=== PATIENT | female | born 1975 | race Caucasian/White ===

== ENCOUNTER 2020-08-14 19:13 | Emergency (ER) | payer SELFPAY ==
[2016-02-13 17:35] VITALS: BP 132/70
[~2020-08-14 19:13] MED LIST: ACET-704 PO; ALPR0.5T PO; ARIP5TAB13 PO; CYCL-331 PO; DULO60CA6 PO; GABA-586 PO; HYDR-2155 PO; IBUP200T44 PO; METH4TAB2 PO; PARO30TA45 PO; PRED20TA PO; PREG75CA PO; SERT100T PO; SULF500T7 PO
== END 2020-08-14 19:23 | disposition left against medical advice (07) ==
LOC: ER 19:13
DX: R06.02 Shortness of breath (principal); R05 Cough; Z53.21 Procedure and treatment not carried out due to patient leaving prior to being seen by health care provider

== ENCOUNTER 2021-05-18 03:49 | Emergency (ER) | payer MEDICAID ==
[~2021-05-18] VITALS: Ht 175.3 cm; Wt 119.0 kg
[2021-05-18 03:49] VITALS: BP 162/87
[2021-05-18] MEDS ORDERED: IPRATRPIUM/ALBUTEROL 0.5/2.5MG 3 ML NEBU. NEB ONE (04:00)
[2021-05-18] MEDS ORDERED: DEXAMETHASONE SOD PHOS 10 MG/ML VIAL. PO ONE (04:00)
--- NOTE | 2021-05-18 04:24 | RAD ---
XR CHEST 2V INDICATION: Reason: cough, short of air / Spl. Instructions: / History: . COMPARISON STUDY: None. FINDINGS: Lungs: Normal lung volume. No pulmonary mass or consolidation. The tracheobronchial tree and hilar st ructures are normal. Pleura: No pleural effusion or pneumothorax. Heart and Mediastinum: The cardiomediastinal silhouette is normal. The great vessels of the thorax ar e normal. Bones and Soft Tissues: The bones and soft tissues are within normal limits. IMPRESSION: No acute cardiopulmonary process. Electronically signed by: Dillan Farnsworth MD (05/18/2021 4:22 AM) [facility]
--- NOTE | 2021-05-18 04:39 | PHYS DOC ---
Past History Past Medical History: Arthritis, Fibromyalgia Past Surgical History: No Surgical History Smoking: Non-smoker Alcohol Use: None Drug Use: None Adult General Chief Complaint Chief Complaint: CONGESTION HPI HPI Patient is a 45-year-old female with a past medical history significant for asthma who presents with 2 days of nasal congestion, productive cough. Denies any recent trauma, travels, fevers, chest pain, shortness of breath, abdominal pain, nausea, vomiting, dysuria, hematuria or blood in the stool. Denies any known ill contacts. Review of Systems Review of Systems Review of systems otherwise unremarkable except noted in HPI Current Medications Current Medications Current Medications Medications (Trade) Dose Ordered Sig/Bruno Start Time Stop Time Status Last Admin Dose Admin Albuterol/ Ipratropium (Duoneb) 3 ml 1X ONCE 05/18/21 04:00 05/18/21 04:05 DC 05/18/21 04:00 3 ML Dexamethasone Sodium Phosphate (Decadron) 10 mg 1X ONCE 05/18/21 04:00 05/18/21 04:05 DC 05/18/21 04:00 10 MG Allergies Allergies Allergies Coded Allergies Type Severity Reaction Last Updated Verified latex Allergy Mild Skin irritation. 07/05/14 Yes Physical Exam Physical Exam Constitutional: Well developed, well nourished, no acute distress, non-toxic appearance. [] HENT: Normocephalic, atraumatic, oropharynx moist, no oral exudates, Eyes: conjunctiva normal, no discharge. [] Neck: Normal range of motion, no tenderness, supple, no stridor. [] Cardiovascular:Heart rate regular rhythm, no murmur [] Lungs & Thorax: Bilateral breath sounds with mild global rhonchi and mild end expiratory wheeze Neurologic: Alert and oriented X 3, no focal deficits noted. [] Psychologic: Affect normal, judgement normal, mood normal. [] Current Patient Data Vital Signs Vital Signs Date Time Temp Pulse Resp B/P (MAP) Pulse Ox O2 Delivery O2 Flow Rate FiO2 05/18/21 04:08 99 Room Air 05/18/21 03:49 98.1 95 20 162/87 (112) EKG EKG [] Radiology/Procedures Radiology/Procedures [] XR CHEST 2V INDICATION: Reason: cough, short of air / Spl. Instructions: / History: . COMPARISON STUDY: None. FINDINGS: Lungs: Normal lung volume. No pulmonary mass or consolidation. The tracheobronchial tree and hilar structures are normal. Pleura: No pleural effusion or pneumothorax. Heart and Mediastinum: The cardiomediastinal silhouette is normal. The great vessels of the thorax are normal. Bones and Soft Tissues: The bones and soft tissues are within normal limits. IMPRESSION: No acute cardiopulmonary process. Electronically signed by: Dillan Farnsworth MD (05/18/2021 4:22 AM) [facility] Heart Score C/O Chest Pain: No Risk Factors: Risk Factors: DM, Current or recent (<one month) smoker, HTN, HLP, family history of CAD, obesity. Risk Scores: Risk Factors: DM, Current or recent (<one month) smoker, HTN, HLP, family history of CAD, obesity. Course & Med Decision Making Course & Med Decision Making Patient is a 45-year-old female who presents with 2 days of nasal congestion and cough Vital signs notable for hypertension. Physical exam noted above. Patient given steroids, and DuoNeb. Chest x-ray not concerning. Gave dose of cough medicine in ED. Discussed all findings with patient and advised on symptom treatment at home. Advised to keep her appointment this morning with her primary care physician. Gave return precautions to the ED. Patient grateful, verbalized understanding and agreed with plan of discharge. Dragon Disclaimer Dragon Disclaimer This electronic medical record was generated, in whole or in part, using a voice recognition dictation system. Departure Departure: Impression: Primary Impression: Asthma exacerbation Additional Impression: Viral syndrome Disposition: HOME / SELF CARE / HOMELESS Condition: GOOD Referrals: BABAR BUITRAGO MD (PCP) Patient Instructions: Asthma Attacks, Prevention, Viral Syndrome Additional Instructions: Thank you for coming into the emergency department tonight and allowing us to take care of you. Please read all of the attached information very carefully to go over things we discussed. You are given steroids, breathing treatments and codeine cough syrup here in the emergency department. Please keep your primary care physician appointment this morning to update on ED visit and discuss need for further evaluation and treatment. Your chest x-ray did not show any pneumonia here today. Please come back to emergency department with new or concerning symptoms as discussed. Problem Qualifiers KIET MALDONADO MD May 18, 2021 04:39
[2021-05-18] MEDS ORDERED: guaiFENesin/CODEINE 100mg/10mg 5 ML LIQUID PO PRN (04:45)
== END 2021-05-18 05:00 | disposition home or self-care (01) ==
LOC: ER 03:49
DX: J45.901 Unspecified asthma with (acute) exacerbation (principal); B34.9 Viral infection, unspecified; M19.90 Unspecified osteoarthritis, unspecified site; M79.7 Fibromyalgia; Z91.040 Latex allergy status
CPT/HCPCS: 71046; 94640; 99283; J1100

== ENCOUNTER → 2021-08-22 | Day surgery (SDC) | payer MEDICAID ==
[~2021-08-22] MED LIST changes: +ACETAMINOPHEN 500 MG TABLET PO ONE; +DEXAMETHASONE SOD PHOS 4 MG/ML VIAL. ONE; -DULO60CA6 PO; +DULO60CA7 PO; +EPINEPHrine 30 MG/30 ML VIAL ONE; +GABAPENTIN 300 MG CAPSULE. PO ONE; +GLYCOPYRROLATE 1 MG/5 ML VIAL. ONE; +IPRATRPIUM/ALBUTEROL 0.5/2.5MG 3 ML NEBU. NEB PRN; +IV RINGERS SOLUTION,LACTATED 1,000 ML IV SCH; +LIDOCAINE 1%/EPI 1:100,000 20 ML VIAL. INJ ONE; +LIDOCAINE 1%/EPI 1:100,000 20 ML VIAL. ONE; +LIDOCAINE 2% PF 5 ML VIAL. ONE; +MIDAZOLAM HCL PF 2 MG/2 ML VIAL. IV ONE; +MIDAZOLAM HCL PF 2 MG/2 ML VIAL. ONE; +NEOSTIGMINE 10 MG/10 ML VIAL. ONE; +OMEP20CA16 PO; +ONDANSETRON PF 4 MG/2 ML VIAL. IV PRN; +ONDANSETRON PF 4 MG/2 ML VIAL. ONE; +PROPOFOL 10,000 MCG/ML (20ML) VIAL IV ONE; +ROCURONIUM 50 MG/5 ML VIAL. ONE; +SCOPOLAMINE 1.5MG PATCH. TD ONE; +SEVOFLURANE 61 TO 120 MINUTES. IH ONE; +SUCCINYLCHOLINE 200 MG/10 ML VIAL. ONE; +TIZA4TAB2 PO; +VENL37.5 PO
[2021-08-22 11:38] VITALS: BP 131/94
--- NOTE | 2021-08-22 11:45 | NUR ---
Approximately 11:15 AM, patient assisted to sitting position on edge of bed. Patient then began verbalizing extreme dizziness and fatigue. Anesthesia notified and at bedside during this time. Patient assisted back INTO SUPINE POSITION IN BED AT THIS TIME. VITAL SIGNS REMAINED wnl THROUGHOUT THIS TIME FRAME. Anesthesia and Surgeon discussed treatment plan. PATIENT ADMINISTERED GABAPENTIN SHE HAD NOT TAKEN HER DAILY DOSE PRIOR TO OPERATION. Approximately 11:30 AM scope patch removed from behind patient's right ear. Approximately 11:40, patient verbalizes feeling much better and was assisted with dressing by nursing staff. No further complications noted at this time.
--- NOTE | 2021-08-22 19:29 | OP ---
DATE OF SURGERY: 08/22/2021 PREOPERATIVE DIAGNOSIS: Chronic tonsillitis with tonsillar hypertrophy. POSTOPERATIVE DIAGNOSIS: Chronic tonsillitis with tonsillar hypertrophy. PROCEDURE PERFORMED: Tonsillectomy. INDICATIONS: Chronic infection and tonsillar enlargement associated with airway compromise. ANESTHESIA: General anesthetic. BLOOD LOSS: Was estimated to be 25-30 mL. DESCRIPTION OF PROCEDURE: The patient was brought to the operating room and placed on the operating table in supine position, given a general anesthetic and safely intubated. When her airway was secure, the table was rotated 90 degrees. Her mouth was braced open with a Dwain mouth gag and the tonsils were observed. They were found to be, as expected enlarged and cryptic in appearance. The left tonsil was approached first. The tonsil pillar and the tonsil soft tissue was injected with 1% lidocaine with epinephrine. This was accomplished on the right side also. The tonsil was then grasped with an Allis and retracted to a medial position. A shallow incision was made along the tonsil mucosa. Gentle dissection was carried out with the use of Jett dissector, the tonsil from the tonsil fossa. As vascular structures were encountered, they were treated with a Coblator. When an adequate tissue dissection margin was established, the Coblator was then implemented by allowing us tissue separation, Coblation of the tissue and control of bleeding. It was evident during the procedure that there was extensive scarring and tissue adhesions, which increased the difficulty of the procedure, but with careful application, the tonsil was without any significant compromise, bleeding was then completely controlled as the tonsil was removed. The right tonsil was then approached in a similar fashion retracting it to a medial position, creating a shallow incision and then implementing blunt dissection with a Jett dissector and the use of a Coblator to remove the tonsil from the tonsil fossa. Care was then taken to assure that no bleeding was occurring. Irrigation of the oropharynx and the tonsil area was accomplished. Exposure of the small isolated bleeding sites were then sealed using Coblator. At the conclusion, the mouth gag was then closed, a brief moment of observation was conducted and then reexamination, no active bleeding sites were observed. Some 1% lidocaine with epinephrine was then placed in the posterior tonsil pillar to provide a substance of momentary pain relief. Again, the surgical site was observed and no active bleeding was occurring and the procedure was completed. The patient was then recovered from her anesthesia and taken to recovery room in stable condition. BETH/BALDO DR: Sabrina TID: [id number]
--- NOTE | 2021-08-23 14:07 | PATHOLOGY ---
[facility] Accession Number: [id number] . 01 Material submitted: . tonsil - BILAT TONSILS. Modifiers: bilateral . 01 Clinical history: . CHRONIC TONSILITIS BILATERAL TONSILLECTOMY . 02 Diagnosis: [place] tonsil (2), bilateral tonsillectomy: - Chronic tonsillitis. . (JPM:mml; 08/23/2021) [facility] 08/23/2021 1355 Local . 02 Electronically signed: . Rc Simon MD, Pathologist NPI- [id number] . 01 Gross description: . Fixative: Formalin Labeled: Tonsils bilateral Specimen received: 2 palatine tonsils Dimensions: 2.8 x 2.0 x 1.8 and 2.8 x 1.9 x 1.7 cm Mucosa: [place]-roberts and smooth to purple-henriquez and slightly roughened Cut surface: [place]-roberts with typical crypts identified . Paving [employer]or sections from each tonsil submitted in cassettes A1 and A2. ([facility]; 08/22/2021) NRI/NRI 08/22/20212106 Local . 02 Pathologist provided ICD-10: J35.01 . 02 CPT . 056408 Specimen Comment: A courtesy copy of this report has been sent to [phone] Specimen Comment: Report sent to Specimen Comment: A duplicate report has been generated due to demographic updates. Performed at: 01 [facility] [address] [id number] MD Roby Chapin MD Phone: [phone] Performed at: 02 [facility] [address] [place], [place] [id number] MD Rc Simon MD Phone: [phone]
== END | disposition home or self-care (01) ==
LOC: SURG 07:49
PROVIDERS: ATTEND Otolaryngology
DX: J35.01 Chronic tonsillitis (principal); J45.909 Unspecified asthma, uncomplicated; F17.210 Nicotine dependence, cigarettes, uncomplicated; Z79.899 Other long term (current) drug therapy; Z90.49 Acquired absence of other specified parts of digestive tract; Z98.890 Other specified postprocedural states; Z91.040 Latex allergy status
CPT/HCPCS: 42826; J0330; J1100; J2001; J2250; J2405; J2704; J2710; J3010; J3490; J7120; 88304

== ENCOUNTER 2021-10-19 04:04 | Emergency (ER) | payer MEDICAID ==
[~2021-10-19] VITALS: Ht 175.3 cm; Wt 115.0 kg
[~2021-10-19 04:04] MED LIST changes: -ACETAMINOPHEN 500 MG TABLET PO ONE; -CYCL-331 PO; +CYCL10TA19 PO; -DEXAMETHASONE SOD PHOS 4 MG/ML VIAL. ONE; -EPINEPHrine 30 MG/30 ML VIAL ONE; -GABAPENTIN 300 MG CAPSULE. PO ONE; -GLYCOPYRROLATE 1 MG/5 ML VIAL. ONE; -IPRATRPIUM/ALBUTEROL 0.5/2.5MG 3 ML NEBU. NEB PRN; -IV RINGERS SOLUTION,LACTATED 1,000 ML IV SCH; -LIDOCAINE 1%/EPI 1:100,000 20 ML VIAL. INJ ONE; -LIDOCAINE 1%/EPI 1:100,000 20 ML VIAL. ONE; -LIDOCAINE 2% PF 5 ML VIAL. ONE; -MIDAZOLAM HCL PF 2 MG/2 ML VIAL. IV ONE; -MIDAZOLAM HCL PF 2 MG/2 ML VIAL. ONE; -NEOSTIGMINE 10 MG/10 ML VIAL. ONE; -ONDANSETRON PF 4 MG/2 ML VIAL. IV PRN; -ONDANSETRON PF 4 MG/2 ML VIAL. ONE; -PROPOFOL 10,000 MCG/ML (20ML) VIAL IV ONE; -ROCURONIUM 50 MG/5 ML VIAL. ONE; -SCOPOLAMINE 1.5MG PATCH. TD ONE; -SEVOFLURANE 61 TO 120 MINUTES. IH ONE; -SUCCINYLCHOLINE 200 MG/10 ML VIAL. ONE; +TIZA-75 PO; -TIZA4TAB2 PO
[2021-10-19 04:17] VITALS: BP 151/89
--- NOTE | 2021-10-19 04:28 | PHYS DOC ---
Past History Past Medical History: Arthritis, Fibromyalgia Past Surgical History: No Surgical History Smoking: Non-smoker Alcohol Use: None Drug Use: None General Adult EDM: Chief Complaint: UPPER EXTREMITY PAIN HPI: HPI: 45-year-old female presents with left elbow and left hand pain. The patient states that she was opening a friend move a heavy bed when she slipped and the bed came down on her left hand and arm. This happened yesterday. The pain is making it where she could not sleep so she decided she should come in for evaluation. She is worried about fracture of the left middle finger but also wants to make sure her elbow is okay. She is able to bend the elbow. It is painful to flex the left little finger. Patient denies any other injuries. She does not want any pain medication at this time. Review of Systems: Review of Systems: Constitutional: Denies fever or chills Eyes: Denies change in visual acuity HENT: Denies nasal congestion or sore throat Respiratory: Denies cough or shortness of breath Cardiovascular: Denies chest pain or edema GI: Denies abdominal pain, nausea, vomiting, bloody stools or diarrhea : Denies dysuria Musculoskeletal: left elbow and 3rd finger pain Integument: Denies rash Neurologic: Denies headache, focal weakness or sensory changes Endocrine: Denies polyuria or polydipsia Lymphatic: Denies swollen glands Psychiatric: Denies depression or anxiety Allergies: Allergies: Allergies Coded Allergies Type Severity Reaction Last Updated Verified latex Allergy Mild Skin irritation. 08/22/21 Yes Physical Exam: PE: Constitutional: Well developed, well nourished, obese, no acute distress, non- toxic appearance. [] HENT: Normocephalic, atraumatic, bilateral external ears normal, oropharynx moist, no oral exudates, nose normal. [] Eyes: PERRLA, EOMI, conjunctiva normal, no discharge. [] Neck: Normal range of motion, no tenderness, supple, no stridor. [] Cardiovascular:Heart rate regular rhythm, no murmur [] Lungs & Thorax: Bilateral breath sounds clear to auscultation [] Abdomen: Bowel sounds normal, soft, no tenderness, no masses, no pulsatile masses. [] Skin: Warm, dry, no erythema, no rash. [] Back: No tenderness, no CVA tenderness. [] Extremities: Tenderness in the left elbow and left hand, no deformity or ecchymosis of the elbow. Mild swelling of the left third finger [] Neurologic: Alert and oriented X 3, normal motor function, normal sensory function, no focal deficits noted. [] Psychologic: Affect normal, judgement normal, mood normal. [] EKG: EKG: [] Radiology/Procedures: Radiology/Procedures: [] Impressions: EXAM: XR ELBOW COMPLETE_LEFT 3+VIEWS, XR HAND_LEFT 3 VIEWS 10/19/2021 4:32 AM CLINICAL INDICATION: Blow to headboard on bed. Pain to left hand and elbow. COMPARISON: None TECHNIQUE: 3 views of the left hand. 3 views of the left wrist FINDINGS: Left hand: There is cortical irregularity along the dorsal triquetrum on lateral view, indeterminate. Otherwise, no fracture. Alignment is normal. Joint spaces are maintained. No focal soft tissue abnormality. Left elbow: No acute fracture or malalignment. Joint spaces are maintained. No joint effusion or soft tissue abnormality. IMPRESSION: 1. Cortical irregularity along the dorsal triquetrum on lateral view of the hand could be a small nondisplaced fracture. Correlate with site of pain. Otherwise, no acute osseous abnormality of the left hand. 2. No acute osseous abnormality of the left elbow. Electronically signed by: Josselyn Adame MD (10/19/2021 5:15 AM) [facility] DICTATED AND SIGNED BY: JOSSELYN ADAME MD DATE: 10/19/21 0512 CC: ZACH NATION DO; PCP,NO ~MTH0 0 Heart Score: C/O Chest Pain: N/A Risk Factors: Risk Factors: DM, Current or recent (<one month) smoker, HTN, HLP, family history of CAD, obesity. Risk Scores: Score 0 - 3: 2.5% MACE over next 6 weeks - Discharge Home Score 4 - 6: 20.3% MACE over next 6 weeks - Admit for Clinical Observation Score 7 - 10: 72.7% MACE over next 6 weeks - Early Invasive Strategies Course & Med Decision Making: Course & Med Decision Making Pertinent Labs and Imaging studies reviewed. (See chart for details) The patient's x-rays do not show any obvious fractures. She does not have tenderness over the triquetrum. I believe he also has contusions from a direct blow. I advised supportive care such as ice, rest, ibuprofen, and Tylenol. She is stable for discharge at this time. [] Dragon Disclaimer: Dragon Disclaimer: This electronic medical record was generated, in whole or in part, using a voice recognition dictation system. Departure Departure: Impression: Primary Impression: Contusion of left hand including fingers Additional Impression: Elbow pain, left Disposition: 01 HOME / SELF CARE / HOMELESS Condition: STABLE Referrals: PCP,NO (PCP) Patient Instructions: Hand Contusion, [id number] ZACH NATION DO Oct 19, 2021 04:28
--- NOTE | 2021-10-19 05:17 | RAD ---
EXAM: XR ELBOW COMPLETE_LEFT 3+VIEWS, XR HAND_LEFT 3 VIEWS 10/19/2021 4:32 AM CLINICAL INDICATION: Blow to headboard on bed. Pain to left hand and elbow. COMPARISON: None TECHNIQUE: 3 views of the left hand. 3 views of the left wrist FINDINGS: Left hand: There is cortical irregularity along the dorsal triquetrum on lateral view, indeterminate. Otherwise, no fracture. Alignment is normal. Joint spaces are maintained. No focal soft tissue abnor mality. Left elbow: No acute fracture or malalignment. Joint spaces are maintained. No joint effusion or soft tissue abnormality. IMPRESSION: 1. Cortical irregularity along the dorsal triquetrum on lateral view of the hand could be a small non displaced fracture. Correlate with site of pain. Otherwise, no acute osseous abnormality of the left hand. 2. No acute osseous abnormality of the left elbow. Electronically signed by: Josselyn Adame MD (10/19/2021 5:15 AM) [facility]
== END 2021-10-19 06:03 | disposition home or self-care (01) ==
LOC: ER 04:04
DX: S60.032A Contusion of left middle finger without damage to nail, initial encounter (principal); M25.522 Pain in left elbow; M19.90 Unspecified osteoarthritis, unspecified site; M79.7 Fibromyalgia; Z91.040 Latex allergy status; W20.8XXA Other cause of strike by thrown, projected or falling object, initial encounter; Y93.89 Activity, other specified; Y92.89 Other specified places as the place of occurrence of the external cause; Y99.8 Other external cause status
CPT/HCPCS: 73080; 73130; 99284

== ENCOUNTER → 2021-10-21 | Outpatient (CLI) | payer MEDICAID ==
[2021-10-19 04:17] VITALS: BP 151/89
--- NOTE | 2021-10-21 14:51 | RAD ---
Examination: Double contrast esophagram. History: Dysphagia Comparison: None available Fluoro time: 1.4 minutes Findings/ impression: Esophagram shows normal esophageal motility and distention. There is no stricture, extrin sic compression, mass, mucosal defect, gastroesophageal reflux, or hiatal hernia. A 13 mm capsule is swallowed and passes the GE junction without difficulty. IMPRESSION: Unremarkable exam. Electronically signed by: Lester Cat MD (10/21/2021 2:48 PM) [id number]
== END ==
LOC: RAD 08:55
PROVIDERS: ATTEND Otolaryngology
DX: R13.10 Dysphagia, unspecified (principal)
CPT/HCPCS: 74220

== ENCOUNTER → 2021-12-28 | Outpatient (CLI) | payer MEDICAID ==
--- NOTE | 2021-12-28 12:22 | RAD ---
EXAM: Left shoulder, 3 views; cervical spine, 5 views. HISTORY: Pain. COMPARISON: None. FINDINGS: Left shoulder: 3 views of left shoulder obtained. There is no fracture, dislocation or subluxation. Cervical spine: 6 views of the cervical spine are obtained. There is no listhesis. The vertebral bodi es are normal in height and the disc spaces are preserved. IMPRESSION: No acute osseous finding. Electronically signed by: Ruth Jordan MD (12/28/2021 12:20 PM) [id number]
== END ==
LOC: RAD 11:55
PROVIDERS: ATTEND Physician Assistant Medical
DX: M25.512 Pain in left shoulder (principal); M54.2 Cervicalgia; M62.81 Muscle weakness (generalized); M54.12 Radiculopathy, cervical region
CPT/HCPCS: 72050; 73030